=== PATIENT | female | born 1955 | race African-American/Black ===

== ENCOUNTER 2017-05-13 11:11 | Emergency (ER) | payer MEDICAID ==
[~2017-05-13] VITALS: Ht 170.2 cm; Wt 77.0 kg
[~2017-05-13 11:11] MED LIST: ALBUTEROL
[2017-05-13] MEDS ORDERED: ALBUTEROL (0.083%) 2.5MG/3ML NEB HHN STA (11:49)
[2017-05-13] MEDS ORDERED: SODIUM CHLORIDE 0.9% 1,000 ML IV ONE (11:49)
[2017-05-13] MEDS ORDERED: IPRATROPIUM BROMIDE (0.02%) 0.5MG/2.5ML NEB HHN STA (11:49)
[2017-05-13] MEDS ORDERED: METHYLPREDNISOLONE SOD SUCC 125 MG/2 ML VIAL IV STA (11:49)
[2017-05-13 12:05] LABS: BASOPHILS % 1.5 % (0.0-2.0); EOSINOPHILS % 4.3 % (0.0-5.0); HEMATOCRIT. 39.6 % (36.0-48.0); HEMOGLOBIN. 13.4 g/dL (12.0-16.0); MEAN CORPUSCULAR HEMOGLOBIN 34.4 pg (28.0-32.0); MEAN CORPUSCULAR VOLUME 101.4 fL (81.0-99.0); MEAN PLATELET VOLUME 9.8 fl (7.4-10.4); MONOCYTES % 11.1 % (2.0-8.0); NEUTROPHILS % 46.1 % (40.0-76.0); PLATELET 217 x1000/uL (130-400); RED BLOOD CELL COUNT 3.91 mill/uL (4.2-5.4); RED CELL DISTRIBUTION WIDTH 14.2 % (11.6-14.6)
[2017-05-13 12:15] VITALS: BP 152/95
== END 2017-05-13 13:40 | disposition home or self-care (01) ==
LOC: ER 13:36
DX: J45.901 Unspecified asthma with (acute) exacerbation (principal); J06.9 Acute upper respiratory infection, unspecified; J45.909 Unspecified asthma, uncomplicated; I10 Essential (primary) hypertension; F17.210 Nicotine dependence, cigarettes, uncomplicated; Z88.6 Allergy status to analgesic agent
CPT/HCPCS: 36415; 71010; 80048; 85025; 94640; 96374; 99285; J2930; J7030; J7611; Z7610

== ENCOUNTER 2017-10-07 10:24 | Emergency (ER) | payer MEDICAID ==
[~2017-10-07] VITALS: Ht 170.2 cm; Wt 82.0 kg
[2017-10-07 10:48] VITALS: BP 149/102
== END 2017-10-07 13:02 | disposition home or self-care (01) ==
LOC: ER 11:01 → SUPCPDRO 20:53
DX: M79.604 Pain in right leg (principal); M79.605 Pain in left leg; M19.90 Unspecified osteoarthritis, unspecified site; J45.909 Unspecified asthma, uncomplicated; I10 Essential (primary) hypertension; F17.200 Nicotine dependence, unspecified, uncomplicated; Z88.6 Allergy status to analgesic agent
CPT/HCPCS: 99282

== ENCOUNTER 2018-07-10 18:14 | Emergency (ER) | payer MEDICAID ==
[~2018-07-10] VITALS: Ht 170.2 cm; Wt 82.0 kg
[2018-07-10] MEDS ORDERED: KETOROLAC 60MG/2ML VIAL IM STA (18:33)
[2018-07-10 19:30] VITALS: BP 120/83
== END 2018-07-10 19:32 | disposition home or self-care (01) ==
LOC: ER 18:14
DX: S20.211A Contusion of right front wall of thorax, initial encounter (principal); J45.909 Unspecified asthma, uncomplicated; I10 Essential (primary) hypertension; M19.90 Unspecified osteoarthritis, unspecified site; F17.200 Nicotine dependence, unspecified, uncomplicated; Z88.6 Allergy status to analgesic agent; Z79.899 Other long term (current) drug therapy; W19.XXXA Unspecified fall, initial encounter; Y93.89 Activity, other specified; Y92.89 Other specified places as the place of occurrence of the external cause; Y99.8 Other external cause status
CPT/HCPCS: 71045; 96372; 99283; J1885

== ENCOUNTER 2019-02-28 09:01 | Emergency (ER) | payer MEDICAID ==
[~2019-02-28] VITALS: Ht 170.2 cm; Wt 82.0 kg
[2019-02-28 12:43] VITALS: BP 151/92
[2019-02-28] MEDS ORDERED: ACETAMINOPHEN 325MG TABLET PO ONE (12:45)
== END 2019-02-28 12:49 | disposition home or self-care (01) ==
LOC: ER 09:01
DX: M25.561 Pain in right knee (principal); J45.909 Unspecified asthma, uncomplicated; I10 Essential (primary) hypertension; F17.200 Nicotine dependence, unspecified, uncomplicated; Z88.6 Allergy status to analgesic agent
CPT/HCPCS: 73562; 99283

== ENCOUNTER 2019-06-02 09:47 | Emergency (ER) | payer MEDICAID | END 2019-06-02 11:28 | disposition left against medical advice (07) | LOC: ER 09:47 | DX: Z53.21 Procedure and treatment not carried out due to patient leaving prior to being seen by health care provider (principal) ==